=== PATIENT | female | born 1970 | race Caucasian/White ===

== ENCOUNTER → 2016-03-30 | Outpatient (CLI) | payer OTHER ==
--- NOTE | 2016-03-30 08:29 | MA ---
Screening Digital Mammogram Clinical Indications: Routine screening. Technique: Standard cephalocaudal and mediolateral oblique projections are obtained. This examinati on is processed by the [employer] computer aided detection system. Comparison: March 2015, March 2014, March 2013 and March 2012 Breast density: B; There are scattered fibroglandular densities. Findings: CAD was reviewed. Possible architectural distortion developing behind the left nipple seen on the cc view only. The remainder of the left and right breast are stable.. Impression: Possible new architectural distortion left breast. Recommendation: Spot compression view , off midline CC views by 5 degrees and true lateral view. If persistent, attempt to localize in the orthogonal plane mammographically, and then proceed to ultraso und for further characterization and localization purposes at the discretion of the interpreting radi ologist.. [facility] will send a result letter to the patient. Negative mammography should not preclude additional workup of a clinically suspicious finding. The patient's information is entered into a reminder system with a target due date for her next mammo gram.
== END ==
LOC: FIMAGING 07:39
DX: Z12.31 Encounter for screening mammogram for malignant neoplasm of breast (principal)
CPT/HCPCS: G0202

== ENCOUNTER → 2016-04-08 | Outpatient (CLI) | payer OTHER ==
--- NOTE | 2016-04-08 13:51 | MA ---
Diagnostic Digital Left Mammogram With Tomosynthesis Clinical Indications: Possible architectural distortion central left breast Technique: Standard digital true lateral and tomosynthesis CC projections are obtained. Comparison: Screening mammogram March 30, 2016 Breast density: B; There are scattered fibroglandular densities. Findings: Architectural distortion does not persist and was related to overlapping normal parenchymal structures.. Impression: Negative mammogram. BI-RADS 1. Recommendation: Routine screening is recommended in one year. Results and recommendation were communicated to the patient at the time of the examination. [facility] will send a result letter to the patient. Negative mammography should not preclude additional workup of a clinically suspicious finding. The patient's information is entered into a reminder system with a target due date for her next mammo gram.
== END ==
LOC: FIMAGING 13:14
PROVIDERS: ATTEND Family Medicine
DX: R92.8 Other abnormal and inconclusive findings on diagnostic imaging of breast (principal)
CPT/HCPCS: G0206; G0279

== ENCOUNTER → 2017-03-31 | Outpatient (CLI) | payer OTHER | LOC: FIMAGING 07:22 | PROVIDERS: ATTEND Family Medicine | DX: Z12.31 Encounter for screening mammogram for malignant neoplasm of breast (principal) ==

== ENCOUNTER → 2018-04-01 | Outpatient (CLI) | payer OTHER | LOC: FIMAGING 07:27 | PROVIDERS: ATTEND Family Medicine | DX: Z12.31 Encounter for screening mammogram for malignant neoplasm of breast (principal) ==